=== PATIENT | female | born 1970 | race Caucasian/White ===

== ENCOUNTER 2017-12-16 23:05 | Emergency (ER) | payer MEDICAID ==
[~2017-12-16] VITALS: Ht 167.6 cm; Wt 59.0 kg
[2017-12-17 00:16] LABS: INFLUENZA A PATIENT NEGATIVE (NEGATIVE); INFLUENZA B PATIENT POSITIVE (NEGATIVE)
[2017-12-17] MEDS ORDERED: OSEL75CA PO (00:38)
[2017-12-17] MEDS ORDERED: GUAI118L13 PO (00:38)
--- NOTE | 2017-12-17 00:40 | PHYS DOC ---
General Chief Complaint: COUGH Stated Complaint: COUGHING SORE THROAT HEADACHE FEVER Time Seen by MD: 23:36 Source: patient Exam Limitations: no limitations Problems: History of Present Illness Initial Comments 47-year-old female to the emergency department with the above complaints for the past several days. Patient states that she has been exposed to strep and influenza, she's been trying to stay hydrated and taking [id number] medications for fever. They haven't been helping so she came for evaluation. Denies chest pain shortness of breath vomiting or diarrhea, no focal weakness or nuchal rigidity. Timing/Duration: other Severity: moderate Modifying Factors: improves with medication, worse with movement, improves with rest Associated Symptoms: cough, diaphoresis, fever/chills, headaches, malaise Allergies: Coded Allergies: erythromycin base (Verified Allergy, Unknown, 12/16/17) Past Medical History Medical History: other Surgical History: noncontributory Psychosocial History: anxiety Social History Smoker: non-smoker Alcohol: none Drugs: none Review of Systems Constitutional: see HPI EENTM: denies eye pain, denies ear pain, nose congestion, throat pain, denies throat swelling, denies mouth swelling Respiratory: see HPI, denies shortness of breath Cardiovascular: denies chest pain, denies palpitations, denies syncope Gastrointestinal: denies abdominal pain, denies diarrhea, denies vomiting Musculoskeletal: denies back pain, denies joint swelling, muscle pain, denies neck pain Psychiatric/Neurological: headache, denies numbness, denies paresthesia, denies weakness Physical Exam General Appearance: mild distress (very anxious) Ear, Nose, Throat: hearing grossly normal, normal ENT inspection, normal pharynx Neck: full range of motion, supple Respiratory: normal breath sounds, no respiratory distress Gastrointestinal: non tender, soft Extremities: non-tender, normal inspection 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 Aggressive hydration with Gatorade and water. [id number] Tylenol and ibuprofen as needed. Prescription: Tamiflu, guaifenesin with codeine syrup Follow-up with your doctor in 4-5 days if no improvement. Return to ED with new or changing symptoms. KARO GRACE DO Dec 17, 2017 00:40
[2017-12-17 00:45] VITALS: BP 119/78
[2017-12-17] MEDS ORDERED: OSELTAMIVIR 75 MG CAPSULE PO ONE (00:45)
== END 2017-12-17 00:55 | disposition home or self-care (01) ==
LOC: ER 23:05
DX: J10.1 Influenza due to other identified influenza virus with other respiratory manifestations (principal); F41.9 Anxiety disorder, unspecified; Z88.1 Allergy status to other antibiotic agents
CPT/HCPCS: 87070; 87804; 87880; 99284

== ENCOUNTER 2017-12-18 22:02 | Emergency (ER) | payer MEDICAID ==
[~2017-12-18] VITALS: Ht 167.6 cm; Wt 59.0 kg
[~2017-12-18 22:02] MED LIST: GUAI118L13 PO; OSEL75CA PO
--- NOTE | 2017-12-18 22:05 | ED.ADGEN ---
Past History Past Medical History: Anxiety, Depression Past Surgical History: Appendectomy, Tonsillectomy Alcohol Use: None Drug Use: None Adult General Chief Complaint Chief Complaint ".. I an pissing a lot... HPI HPI Patient is a 47 year old female who presents with above hx and dysuria. Pt. recently diagnosis of influenza and was started on Tamiflu. Patient complains of frequent urination since starting the Tamiflu. No other changes in meds travel or exposures. Patient did not receive a flu vaccination this fall. Pt. dx of Influ. B on 12/16 . Review of Systems Review of Systems Constitutional: Complaints of fever or chills [] Eyes: Denies change in visual acuity, redness, or eye pain [] HENT: Denies nasal congestion or sore throat [] Respiratory: History of cough and occasional wheezing Cardiovascular: No additional information not addressed in HPI [] GI: Denies abdominal pain, , vomiting, bloody stools or diarrhea []complaints of mild nausea : Denies dysuria or hematuria [] Musculoskeletal: Denies back pain or joint pain [] Integument: Denies rash or skin lesions [] Neurologic: Denies headache, focal weakness or sensory changes [] Endocrine: Denies polyuria or polydipsia [] All other systems were reviewed and found to be within normal limits, except as documented in this note. Family History Family History Noncontributory Current Medications Current Medications Current Medications Medications (Trade) Dose Ordered Sig/Nadja Start Time Stop Time Status Last Admin Dose Admin Acetaminophen (Tylenol) 500 mg 1X ONCE 12/18/17 23:30 12/18/17 23:36 DC 12/18/17 23:15 500 MG Allergies Allergies Allergies Coded Allergies Type Severity Reaction Last Updated Verified erythromycin base Allergy Unknown 12/16/17 Yes Physical Exam Physical Exam Constitutional: Moderate acute distress, non-toxic appearance. [] HENT: Normocephalic, atraumatic, bilateral external ears normal, oropharynx moist, injected pharynx, no oral exudates, nose rhinorrhea. Eyes: PERRLA, EOMI, conjunctiva normal, no discharge. [] Neck: Normal range of motion, no tenderness, supple, no stridor. [] Cardiovascular:Heart rate regular rhythm, no murmur [] Lungs & Thorax: Bilateral breath sounds equal at apexes with a few scattered wheezes on auscultation [] Abdomen: Bowel sounds normal, soft, no tenderness, no masses, no pulsatile masses. [] Old surgery scars Skin: Warm, dry, no erythema, no rash. [] Back: No tenderness, no CVA tenderness. [] Extremities: No tenderness, no cyanosis, no clubbing, ROM intact, no edema. [] Neurologic: Alert and oriented X 3, normal motor function, normal sensory function, no focal deficits noted. [] Psychologic: Affect very anxious, judgement normal, mood normal. [] Current Patient Data Vital Signs Vital Signs Date Time Temp Pulse Resp B/P (MAP) Pulse Ox O2 Delivery O2 Flow Rate FiO2 12/18/17 23:10 100.0 106 22 112/76 (88) 100 Room Air Lab Results Laboratory Tests Test 12/18/17 22:09 Urine Collection Type Unknown Urine Color Straw Urine Clarity Clear Urine pH 5.5 Urine Specific [place] <=1.005 Urine Protein Neg (NEG-TRACE) Urine Glucose (UA) Neg mg/dL (NEG) Urine Ketones (Stick) Neg mg/dL (NEG) Urine Blood Mod (NEG) Urine Nitrite Neg (NEG) Urine Bilirubin Neg (NEG) Urine Urobilinogen Dipstick 0.2 mg/dL (0.2 mg/dL) Urine Leukocyte Esterase Neg (NEG) Urine RBC Occ /HPF (0-2) Urine WBC Occ /HPF (0-4) Urine Squamous Epithelial Cells Occ /LPF Urine Bacteria 0 /HPF (0-FEW) Urine Opiates Screen Neg (NEG) Urine Methadone Screen Neg (NEG) Urine Barbiturates Neg (NEG) Urine Phencyclidine Screen Neg (NEG) Urine Amphetamine/Methamphetamine Neg (NEG) Urine Benzodiazepines Screen Neg (NEG) Urine Cocaine Screen Neg (NEG) Urine Cannabinoids Screen Neg (NEG) Urine Ethyl Alcohol Neg (NEG) EKG EKG [] Radiology/Procedures Radiology/Procedures [] Course & Med Decision Making Course & Med Decision Making Pertinent Labs and Imaging studies reviewed. (See chart for details). Patient push vitamin C drinks. Patient to push fluids and fruit juices. Take Tylenol as needed for discomfort. Benadryl 50 mg up 4 times a day. Return if any concerns. follow up primary. [] Final Impression Final Impression 1. Dysuria[] 2. Hx. of Influ. B Problems: Dragon Disclaimer Dragon Disclaimer This electronic medical record was generated, in whole or in part, using a voice recognition dictation system. ALFREDITO DENTON MD Dec 18, 2017 22:05
[2017-12-18 22:51] LABS: BILIRUBIN,URINE NEG (NEG); CLARITY,URINE CLEAR; COLOR,URINE STRAW; GLUCOSE,URINE NEG (NEG)
[2017-12-18 22:52] LABS: BACTERIA,URINE 0 /HPF (0-FEW); NITRITE,URINE NEG (NEG); RBC,URINE OCC /HPF (0-2); SQUAMOUS EPITHELIAL CELL,UR OCC /LPF; UROBILINOGEN,URINE 0.2 mg/dL (0.2 mg/dL); WBC,URINE OCC /HPF (0-4)
[2017-12-18 22:53] LABS: AMPHETAMINE/METHAMPHETAMINE NEG (NEG); BARBITURATES NEG (NEG); BENZODIAZEPINES NEG (NEG); CANNABINOIDS NEG (NEG); COCAINE NEG (NEG); METHADONE NEG (NEG); OPIATES NEG (NEG); PHENCYCLIDINE NEG (NEG)
[2017-12-18 23:10] VITALS: BP 112/76
[2017-12-18] MEDS ORDERED: ACETAMINOPHEN 500 MG TABLET PO ONE (23:14)
[2017-12-18] MEDS: ACETAMINOPHEN 500 MG TABLET PO ONE (23:15)
[2017-12-19] MEDS ORDERED: RANI150T6 PO (05:19)
== END 2017-12-18 23:18 | disposition home or self-care (01) ==
LOC: ER 22:02
DX: R30.0 Dysuria (principal); R35.0 Frequency of micturition; Z88.1 Allergy status to other antibiotic agents
CPT/HCPCS: 36415; 80307; 81001; 99284; G0479

== ENCOUNTER 2017-12-19 04:53 | Emergency (ER) | payer MEDICAID ==
[~2017-12-19] VITALS: Ht 167.6 cm; Wt 59.0 kg
[2017-12-19 04:53] VITALS: BP 122/85
--- NOTE | 2017-12-19 05:14 | ED.ADGEN ---
Past History Past Medical History: Anxiety, Depression Past Surgical History: Appendectomy, Tonsillectomy Alcohol Use: None Drug Use: None Adult General Chief Complaint Chief Complaint " .. I think I am getting a rash now.. " HPI HPI Patient is a 47 year old female who presents with above hx and complaints diffuse rash since here earlier this morning. Pt. has previous dx. of Influ B on 12/16. No new drugs,foods, soaps, personal hygiene products. Pt. now has a viral xanthoma versus drug reaction. Only new drug is Tamiflu. Review of Systems Review of Systems Constitutional: Hx of fever or chills [] Eyes: Denies change in visual acuity, redness, or eye pain [] HENT:Hx. nasal congestion and sore throat [] Respiratory: Hx. cough and occasional wheeze Cardiovascular: No additional information not addressed in HPI [] GI: Denies abdominal pain, nausea, vomiting, bloody stools or diarrhea [] : Denies dysuria or hematuria [] Musculoskeletal: Denies back pain or joint pain [] Integument: New skin rash Neurologic: Denies headache, focal weakness or sensory changes [] Endocrine: Denies polyuria or polydipsia [] All other systems were reviewed and found to be within normal limits, except as documented in this note. Family History Family History Noncontributory to presentation Current Medications Current Medications Current Medications Medications (Trade) Dose Ordered Sig/Nadja Start Time Stop Time Status Last Admin Dose Admin Albuterol Sulfate (Ventolin Hfa) 2 puff 1X ONCE 12/19/17 05:30 12/19/17 05:31 DC 12/19/17 05:34 2 PUFF Famotidine (Pepcid) 20 mg 1X ONCE 12/19/17 05:30 12/19/17 05:31 DC 12/19/17 05:34 20 MG Methylprednisolone Acetate (DEPO-Medrol IM) 40 mg 1X ONCE 12/19/17 05:30 12/19/17 05:31 DC 12/19/17 05:35 40 MG See Nursing for home meds. Allergies Allergies Allergies Coded Allergies Type Severity Reaction Last Updated Verified erythromycin base Allergy Unknown 12/16/17 Yes Physical Exam Physical Exam Constitutional:Moderately acute distress, non-toxic appearance. [] HENT: Normocephalic, atraumatic, bilateral external ears normal, oropharynx moist, injected pharynx, no oral exudates, nose rhinorrhea. Eyes: PERRLA, EOMI, conjunctiva normal, no discharge. [] Neck: Normal range of motion, no tenderness, supple, no stridor. [] Cardiovascular:Heart rate regular rhythm, no murmur [] Lungs & Thorax: Bilateral breath sounds equal apex with few scattered wheezes. auscultation [] Abdomen: Bowel sounds normal, soft, no tenderness, no masses, no pulsatile masses. Old surgery scar. Skin: Warm, dry, no erythema, erythemic rash over her entire body. Non- petechial Back: No tenderness, no CVA tenderness. [] Extremities: No tenderness, no cyanosis, no clubbing, ROM intact, no edema. [] Neurologic: Alert and oriented X 3, normal motor function, normal sensory function, no focal deficits noted. [] Psychologic: Affect anxious, judgement normal, mood normal. [] Current Patient Data Vital Signs Vital Signs Date Time Temp Pulse Resp B/P (MAP) Pulse Ox O2 Delivery O2 Flow Rate FiO2 12/19/17 04:53 98.9 96 16 98 Room Air EKG EKG [] Radiology/Procedures Radiology/Procedures [] Course & Med Decision Making Course & Med Decision Making Pertinent Labs and Imaging studies reviewed. (See chart for details). Take Benadryl 50 mg four times a day. Use MDI two puffs four times a day. Take Zantac 150 twice a day. MUST STOP TAMIFLU. Push fluids and fruit juices . Follow up with primary,. [] Final Impression Final Impression 1. Drug Rash vs Viral exanthem[] Problems: Dragon Disclaimer Dragon Disclaimer This electronic medical record was generated, in whole or in part, using a voice recognition dictation system. ALFREDITO DENTON MD Dec 19, 2017 05:14
[2017-12-19] MEDS ORDERED: RANI150T6 PO (05:19)
[2017-12-19] MEDS ORDERED: methylPREDNISolone ACETATE 40 MG/ML VIAL. IM ONE (05:30)
[2017-12-19] MEDS ORDERED: ALBUTEROL SULFATE 8GM INHALER. INH ONE (05:30)
[2017-12-19] MEDS ORDERED: FAMOTIDINE 20 MG TABLET PO ONE (05:30)
== END 2017-12-19 05:51 | disposition home or self-care (01) ==
LOC: ER 04:53
DX: L27.0 Generalized skin eruption due to drugs and medicaments taken internally (principal); T37.5X5A Adverse effect of antiviral drugs, initial encounter; Z88.1 Allergy status to other antibiotic agents; Y92.89 Other specified places as the place of occurrence of the external cause
CPT/HCPCS: 94640; 96372; 99283; J1030; J7613

== ENCOUNTER 2018-01-05 21:16 | Emergency (ER) | payer MEDICAID ==
[~2018-01-05] VITALS: Ht 167.6 cm; Wt 59.0 kg
[~2018-01-05 21:16] MED LIST changes: +RANI150T6 PO
--- NOTE | 2018-01-05 21:28 | ED.ADGEN ---
Past History Past Medical History: Anxiety, Depression Past Surgical History: Appendectomy, Tonsillectomy Alcohol Use: None Drug Use: None Adult General Chief Complaint Chief Complaint " .. I feel like I got flu.. or something.. I coughing up some white sputum... I had nfluenza B... and I had green sputum ... but now it has turned white..." HPI HPI Patient is a 47 year old female who presents with above hx and complaints of flu like symptoms. Patient previously had influenza B. Patient still feeling generalized weakness from her first bout of influenza. Patient did not receive a flu vaccination this year. No recent travel. No specific ill contacts. No history immunosuppression. Review of Systems Review of Systems Constitutional: Subjective history of fever or chills [] Eyes: Denies change in visual acuity, redness, or eye pain [] HENT: History of nasal drainage and sore throat [] Respiratory: History of cough and wheezing Cardiovascular: No additional information not addressed in HPI [] GI: Denies abdominal pain, , vomiting, bloody stools or diarrhea []complaints of nausea : Denies dysuria or hematuria [] Musculoskeletal: Denies back pain or joint pain []does have complaints of generalized myalgia Integument: Denies rash or skin lesions [] Neurologic: Denies headache, focal weakness or sensory changes [] Endocrine: Denies polyuria or polydipsia [] All other systems were reviewed and found to be within normal limits, except as documented in this note. Family History Family History Noncontributory to presentation Current Medications Current Medications See nursing for home meds Allergies Allergies Allergies Coded Allergies Type Severity Reaction Last Updated Verified erythromycin base Allergy Unknown 12/16/17 Yes Physical Exam Physical Exam Constitutional: Well developed, well nourished, moderately acute distress, non- toxic appearance. [] HENT: Normocephalic, atraumatic, bilateral external ears normal, oropharynx moist, mild retropharyngeal injection, no oral exudates, nose clear rhinorrhea Eyes: PERRLA, EOMI, conjunctiva normal, no discharge. [] Neck: Normal range of motion, no tenderness, supple, no stridor. [] Cardiovascular:Heart rate regular rhythm, no murmur [] Lungs & Thorax: Bilateral breath sounds equal at apexes with a few scattered wheezes on auscultation [] Abdomen: Bowel sounds normal, soft, no tenderness, no masses, no pulsatile masses. [] Old surgical scar Skin: Warm, dry, no erythema, no rash. [] Back: No tenderness, no CVA tenderness. [] Extremities: No tenderness, no cyanosis, no clubbing, ROM intact, no edema. [] Neurologic: Alert and oriented X 3, normal motor function, normal sensory function, no focal deficits noted. [] Psychologic: Affect very anxious, judgement normal, mood normal. [] Current Patient Data Lab Results Laboratory Tests Test 01/05/18 21:48 Influenza Type A (Rapid) Negative (NEGATIVE) Influenza Type B (Rapid) Negative (NEGATIVE) Group A Streptococcus Rapid Negative (NEGATIVE) EKG EKG [] Radiology/Procedures Radiology/Procedures [] Course & Med Decision Making Course & Med Decision Making Pertinent Labs and Imaging studies reviewed. (See chart for details). Continue push fluids and vitamin C drinks. Get adequate rest. Take [id number] Tylenol and ibuprofen as needed for discomfort and fever. Take Benadryl 25-50 mg 4 times a day for congestion and drainage. Follow-up primary care. Return if any concerns. [] Final Impression Final Impression 1. Viral syndrome[] Problems: Dragon Disclaimer Dragon Disclaimer This electronic medical record was generated, in whole or in part, using a voice recognition dictation system. ALFREDITO DENTON MD Jan 05, 2018 21:28
[2018-01-05 22:30] LABS: INFLUENZA A PATIENT NEGATIVE (NEGATIVE); INFLUENZA B PATIENT NEGATIVE (NEGATIVE)
[2018-01-05 22:55] VITALS: BP 110/70
== END 2018-01-05 23:00 | disposition home or self-care (01) ==
LOC: ER 21:16
DX: B34.9 Viral infection, unspecified (principal); Z88.1 Allergy status to other antibiotic agents
CPT/HCPCS: 87070; 87804; 87880; 99284